=== PATIENT | female | born 1980 | race Two or more races ===

== ENCOUNTER → 2019-04-10 | Outpatient (CLI) | payer OTHER | END | disposition home or self-care (01) | LOC: PRENATAL 09:57 | DX: Z36.82 Encounter for antenatal screening for nuchal translucency (principal); O09.521 Supervision of elderly multigravida, first trimester; O36.80X1 Pregnancy with inconclusive fetal viability, fetus 1; Z3A.12 12 weeks gestation of pregnancy ==

== ENCOUNTER → 2019-06-04 | Outpatient (CLI) | payer OTHER | END | disposition home or self-care (01) | LOC: PRENATAL 05-29 10:00 | DX: O35.3XX1 Maternal care for (suspected) damage to fetus from viral disease in mother, fetus 1 (principal); O09.522 Supervision of elderly multigravida, second trimester ==